=== PATIENT | male | born 1960 | race Caucasian/White ===

== ENCOUNTER 2023-07-22 12:37 | Emergency (ER) | payer OTHER ==
[2023-07-22 13:50] LABS: APPEARANCE,URINE CLEAR (CLEAR); BILIRUBIN,URINE NEGATIVE (NEGATIVE); COLOR,URINE YELLOW (YELLOW); GLUCOSE,URINE NEGATIVE (NEGATIVE); KETONES,URINE NEGATIVE (NEGATIVE); LEUKOCYTE ESTERASE,URINE NEGATIVE (NEGATIVE); NITRITE,URINE NEGATIVE (NEGATIVE); OCCULT BLOOD,URINE NEGATIVE (NEGATIVE); PROTEIN,URINE NEGATIVE (NEGATIVE); UROBILINOGEN,URINE 0.2 EU/dL (0.2-1.0)
[2023-07-22 13:56] LABS: AMORPHOUS SEDIMENT,URINE RARE; BACTERIA,URINE NOT SEEN; EPITHELIAL CELLS,URINE NOT SEEN; MUCUS,URINE NOT SEEN; RBC,URINE 0-5 (0-5); WBC,URINE NOT SEEN (0-5)
== END 2023-07-22 14:17 | disposition home or self-care (01) ==
LOC: JP.ED 12:37
DX: S20.222A Contusion of left back wall of thorax, initial encounter (principal); W00.0XXA Fall on same level due to ice and snow, initial encounter; I25.10 Atherosclerotic heart disease of native coronary artery without angina pectoris; I10 Essential (primary) hypertension; F17.210 Nicotine dependence, cigarettes, uncomplicated
CPT/HCPCS: 81001; 99283

== ENCOUNTER 2023-08-08 10:41 | Emergency (ER) | payer OTHER ==
[2023-08-08] MEDS ORDERED: Lidocaine 1% with EPINEPHrine 1:100,000 50 ML MDV SUBCUT STA (13:29)
== END 2023-08-08 14:51 | disposition home or self-care (01) ==
LOC: JP.ED 10:41
DX: L02.211 Cutaneous abscess of abdominal wall (principal); I25.10 Atherosclerotic heart disease of native coronary artery without angina pectoris; I10 Essential (primary) hypertension
CPT/HCPCS: 10060; 87070; 87077; 87186; 87205; 99283

== ENCOUNTER 2023-11-17 14:50 | Emergency (ER) | payer OTHER | END 2023-11-17 17:05 | disposition home or self-care (01) | LOC: JP.ED 14:50 | DX: R53.1 Weakness (principal); I10 Essential (primary) hypertension; I25.10 Atherosclerotic heart disease of native coronary artery without angina pectoris | CPT/HCPCS: 93971-26; 93971-RT; 99283 ==

== ENCOUNTER 2024-02-27 12:14 | Emergency (ER) | payer OTHER ==
[2024-02-27] MEDS ORDERED: Iopamidol 612 MG/ML 100 ML Bottle IV SCH (16:45)
[2024-02-27] MEDS ORDERED: Sodium Chloride 0.9% 80 ML IV SCH (16:45)
== END 2024-02-27 17:02 | disposition left against medical advice (07) ==
LOC: JP.ED 12:14
DX: M25.512 Pain in left shoulder (principal); R07.81 Pleurodynia; R10.12 Left upper quadrant pain; I10 Essential (primary) hypertension; I25.10 Atherosclerotic heart disease of native coronary artery without angina pectoris; F17.210 Nicotine dependence, cigarettes, uncomplicated; W19.XXXA Unspecified fall, initial encounter; Z53.20 Procedure and treatment not carried out because of patient's decision for unspecified reasons
CPT/HCPCS: 99283

== ENCOUNTER 2024-10-20 13:05 | Emergency (ER) | payer OTHER ==
[2024-10-20] MEDS: Ketorolac 30 MG/ML SDV IM ONE (14:01)
== END 2024-10-20 16:58 | disposition home or self-care (01) ==
LOC: JP.ED 13:05
DX: K59.04 Chronic idiopathic constipation (principal); I10 Essential (primary) hypertension; I25.10 Atherosclerotic heart disease of native coronary artery without angina pectoris; F17.210 Nicotine dependence, cigarettes, uncomplicated
CPT/HCPCS: 74018; 96372; 99284; J1885; 99283

== ENCOUNTER 2025-02-22 18:37 | Emergency (ER) | payer OTHER ==
[2025-02-22 19:39] LABS: APPEARANCE,URINE CLEAR (CLEAR); GLUCOSE,URINE NEGATIVE (NEGATIVE); OCCULT BLOOD,URINE NEGATIVE (NEGATIVE)
[2025-02-22 19:44] LABS: SQUAMOUS EPITHELIAL CELLS,UR RARE /HPF; UROTHELIAL CELLS,URINE NOT SEEN /HPF
[2025-02-22] MEDS: Phenazopyridine 95 MG Tab PO ONE (20:00)
[2025-02-22] MEDS: Lidocaine 2% Jelly 10 ML Urojet MUCMEM ONE (21:47)
[2025-02-22] MEDS: Sodium Phosphate,Monobasic/Sodium Phosphate,Dibasic Enema 133 ML Bottle RECTAL ONE (23:13)
== END 2025-02-22 23:15 | disposition home or self-care (01) ==
LOC: JP.ED 18:37
DX: R33.9 Retention of urine, unspecified (principal); I10 Essential (primary) hypertension; F17.200 Nicotine dependence, unspecified, uncomplicated; Z87.891 Personal history of nicotine dependence
CPT/HCPCS: 51702; 51798; 74019; 81001; 99284; A9270

== ENCOUNTER 2025-02-25 12:45 | Emergency (ER) | payer OTHER ==
[2025-02-25] MEDS: Lidocaine 2% Jelly 10 ML Urojet MUCMEM ONE (14:02)
[2025-02-25] MEDS: Sodium Phosphate,Monobasic/Sodium Phosphate,Dibasic Enema 133 ML Bottle RECTAL ONE (14:02)
== END 2025-02-25 14:43 | disposition home or self-care (01) ==
LOC: JP.ED 12:45
DX: T83.091A Other mechanical complication of indwelling urethral catheter, initial encounter (principal); I10 Essential (primary) hypertension; F17.200 Nicotine dependence, unspecified, uncomplicated; M19.90 Unspecified osteoarthritis, unspecified site; Y84.6 Urinary catheterization as the cause of abnormal reaction of the patient, or of later complication, without mention of misadventure at the time of the procedure
CPT/HCPCS: 99283; A9270

== ENCOUNTER 2025-03-06 08:48 | Emergency (ER) | payer OTHER | END 2025-03-06 11:08 | disposition home or self-care (01) | LOC: JP.ED 08:48 | DX: R33.9 Retention of urine, unspecified (principal); I10 Essential (primary) hypertension; E78.00 Pure hypercholesterolemia, unspecified; I25.10 Atherosclerotic heart disease of native coronary artery without angina pectoris; K21.9 Gastro-esophageal reflux disease without esophagitis; F17.210 Nicotine dependence, cigarettes, uncomplicated | CPT/HCPCS: 51702; 87086; 99283 ==